=== PATIENT | female | born 1945 | race Hispanic/Latino ===

== ENCOUNTER → 2024-07-17 | Outpatient (CLI) | payer OTHER ==
--- NOTE | 2024-07-17 15:19 | HMCIMG ---
DEXA BONE DENSITY SURVEY HISTORY: Osteoporosis COMPARISON: None FINDINGS: Bone densitometry study was performed. Bone mineral density of the lumbar spine is 1.139 gram per centimeter square which corresponds to a T score of 0.8 and a Z score of 3.5. Bone mineral density of the left hip is 0.879 grams per centimeter square which corresponds to a T score of -0.6 and a Z score of 1.4. IMPRESSION: 1. Normal bone mineral density of the lumbar spine and left hip.
== END | disposition home or self-care (01) ==
LOC: RAH 13:08
PROVIDERS: ATTEND Internal Medicine
DX: M81.0 Age-related osteoporosis without current pathological fracture (principal)
CPT/HCPCS: 77080

== ENCOUNTER → 2024-11-09 | Outpatient (CLI) | payer OTHER ==
[~2024-11-09] MED LIST: IOHEXOL 350 MG/ML 100ML INFUS..BTL IV ONE; metoPROLOL tartRATE 1 MG/ML 5ML VIAL IV ONE
--- NOTE | 2024-11-09 16:13 | HMCIMG ---
CT CARDIAC ANGIO W/CONT. CCTA HISTORY: Chest pain COMPARISON: None TECHNIQUE: Multiple sequential axial images of the chest were obtained along with the CT angiogram of the chest study. Patient was given 100 cc of Omnipaque through intravenous route. FINDINGS: There is no evidence of pulmonary nodule or parenchymal disease. No pleural effusion or pericardial effusion is seen. There is no evidence of pneumothorax. There are normal size mediastinal and hilar lymph nodes. The heart is not enlarged. Degenerative changes of the thoracolumbar spine are present. IMPRESSION: 1. No evidence of pulmonary nodule or effusion is seen. Please see CT angiogram report of coronary arteries.
== END | disposition home or self-care (01) ==
LOC: RAH 08:56
PROVIDERS: ATTEND Internal Medicine Cardiovascular Disease
DX: R07.9 Chest pain, unspecified (principal); M47.815 Spondylosis without myelopathy or radiculopathy, thoracolumbar region
CPT/HCPCS: 75574; J3490 ×2; Q9967

== ENCOUNTER 2024-12-27 06:48 | Day surgery (SDC) | payer OTHER ==
--- NOTE | 2024-12-25 12:04 | EKG ---
[facility] Test Date: 2024-12-25 Test Time: 11:55:53 Pat Name: GALDINO GUTIERRES Department: [facility] Room: Gender: F [employer]: [id number] : 1945 Requested By: FESTUS HANSEN Order Number: [id number] Reading MD: Festus Isabel Measurements Intervals Tibbie Rate: 90 P: 67 CO: 163 QRS: -28 QRSD: 128 T: 72 QT: 444 QTc: 498 Interpretive Statements Sinus rhythm Multiple ventricular premature complexes Probable left atrial enlargement Left bundle branch block No previous ECG available for comparison Electronically Signed On 12-25-2024 15:04:04 CDT by Festus Isabel Please click the below link to view image of tracing.
[2024-12-25 12:07] LABS: IMMATURE GRANULOCYTE ABSOLUTE 0.02 K/uL (0-1); NUCLEATED RED BLOOD CELLS 0.0 % (0.0-0.19); PLATELET COUNT (AUTO) 155 K/uL (130-400); RED BLOOD CELL COUNT(AUTO) 4.43 MIL/uL (4.00-5.50); RED CELL DISTRIBUTION WIDTH 13.6 % (11.0-15.5); WHITE BLOOD COUNT (AUTO) 5.9 K/uL (4.8-10.8)
[2024-12-25 12:09] VITALS: BP 142/79; PULSE 94; RESP 17; TEMP 98
[2024-12-25 12:17] LABS: CREATININE 0.7 mg/dL (0.5-1.0); GLOMERULAR FILTR. RATE CALC 88.0 mL/min (>90); GLUCOSE,RANDOM 132.0 mg/dL (70-105); SODIUM SERUM 139.0 mmol/L (136-145); UREA NITROGEN, BLOOD 14.0 mg/dL (7-18)
[2024-12-25 12:20] LABS: INR 1.15 (0.85-1.15)
[2024-12-25 12:55] LABS: APPEARANCE,URINE CLEAR (CLEAR); GLUCOSE, URINE (UA) NEGATIVE (NEGATIVE); LEUKOCYTE ESTERASE ,URINE NEGATIVE Leu/uL (NEGATIVE); NITRATE,URINE NEGATIVE (NEGATIVE); OCCULT BLOOD,URINE NEGATIVE (NEGATIVE)
[2024-12-25 13:09] LABS: ADD UA MICROSCOPIC NO
--- NOTE | 2024-12-26 04:56 | HMCIMG ---
EXAM: CR Chest, 1 view CLINICAL HISTORY: Preoperative evaluation. COMPARISON: None provided. FINDINGS: The lungs show no infiltrates or other acute findings. No pleural effusion or pneumothorax. The cardiomediastinal silhouette is within normal limits. No acute osseous abnormality. Mild dextroscoliosis of the thoracolumbar spine. Old healed fracture of the right eighth rib. Partially visualized calcifications in the bilateral renal areas. IMPRESSION: No acute cardiopulmonary process is evident. Mild dextroscoliosis of the thoracolumbar spine. Old healed fracture of the right eighth rib. Partially visualized calcifications in the bilateral renal areas, further evaluation with a non-contrast CT abdomen and pelvis may be done if clinically warranted. /Aldrich
[~2024-12-27] VITALS: Ht 157.5 cm; Wt 67.9 kg
[2024-12-27] VITALS (10 sets, daily range): BP systolic 125–154; BP diastolic 60–73; PULSE 64–83; RESP 10–17; TEMP 97.4–97.9
[~2024-12-27 06:48] MED LIST changes: +AEC81 PO; +ATOR40TA69 PO; +BETA1TAB18 PO; +CETI10TA57 PO; +CHOL100040 PO; +EVOL140S2 SQ; -IOHEXOL 350 MG/ML 100ML INFUS..BTL IV ONE; +LEVO75CA6 PO; +LINA5TAB PO; +LOSA100T59 PO; +METF-445 PO; +MILK175T2 PO; +PANT40TA54 PO; +TIRZ5PEN SQ; +UBID200C18 PO; -metoPROLOL tartRATE 1 MG/ML 5ML VIAL IV ONE
[2024-12-27] MEDS: 0.9%NACL 1000ML 1,000 ML IV SCH (07:51)
[2024-12-27] MEDS ORDERED: HEParin-NS 1,000 UNIT/500 ML 1,000 ML IV ONE (08:40)
[2024-12-27] MEDS ORDERED: IOHEXOL 350 MG/ML 100ML INFUS..BTL IV ONE (08:40)
[2024-12-27] MEDS ORDERED: LIDOCAINE HCL 400MG/20ML VIAL ONE ×2 (08:40→08:46)
[2024-12-27] MEDS ORDERED: NITROGLYCERIN 50MG VIAL ONE (08:40)
[2024-12-27] MEDS ORDERED: MIDAZOLAM HCL 1 MG/ML 2ML VIAL ONE (08:59)
[2024-12-27] MEDS ORDERED: HEParin-NS 1,000 UNIT/500 ML 500 ML IV ONE (09:31)
[2024-12-27] MEDS ORDERED: GLUCAGON 1MG KIT 1 MG ML IM PRN (11:30)
[2024-12-27] MEDS ORDERED: DEXTROSE 50%-WATER 50 ML DISP.SYRIN IV PRN (11:30)
[2024-12-27] MEDS ORDERED: 0.9%NACL 1000ML 1,000 ML IV SCH (11:30)
--- NOTE | 2024-12-27 11:47 | PRN ---
PROCEDURE NOTE Indications: Chest pain Abnormal coronary CTA done on 11/15/2024 Normal left ventricle systolic function (LVEF 55-60% and grade 1 diastolic dysfunction by echocardiogram done on 12/04/2024) Moderate to severe mitral stenosis, mean gradient 9.7 mm Hg Procedures: LHC, RHC, coronary angiogram, IFR of the LAD and IVUS assessment of the RCA, femoral angiogram Introduction: After informed written consent was obtained, the patient was brought to the Catheterization Lab in the usual fasting state. Following sterile prep and drape, a time out was performed, then 1% Lidocaine was infiltrated into the right femoral groin. Using a Modified Seldinger technique, a 7Fr Sheath was inserted into the right common femoral vein. We then performed a right heart catheterization. Once that was complete administered moderate sedation, Versed 1 mg, fentanyl 50 mcg. Then using a Modified Seldinger technique a 6Fr sheath was inserted into the right common femoral artery. While under fluoroscopic guidance, diagnostic coronary catheters were advanced over a wire into the central circulation where they were aspirated, flushed and placed to pressure monitoring, once the wire was removed. Right Heart Catheterization: RA: 8/6, mean 6 mmHg RV: 27/9 PA: 25/13, mean 17mmHg PCWP: 10/15, mean 13mmHg Ave CO: 3.56 L/min Cardiac index: 2.11 Simultaneous readings: LVEDP 10mmHg, pulmonary capillary wedge pressure mean 12mmHg, Mitral valve MG 8mmHg, MVA 1.27cm2 LVEDP 10mmHg, pulmonary capillary wedge pressure mean 13mmHg, Mitral valve MG 11mmHg, MVA 1.27cm2 Coronary Angio: The left and right coronary arteries were engaged with appropriate catheters and angiography was performed under continuous pressure monitoring. Left Heart Catheterization: A pigtail catheter was inserted into the LV and the pressure was recorded, then the catheter was removed from the LV. Cardiac Findings: Right dominant system LM: Large caliber vessel with 20% stenosis in the ostial LM. The vessel bifurcates into the LAD and LCX. LAD: Medium caliber vessel with 50% stenosis in the ostial LAD and diffuse 30- 40% stenosis in the mid LAD. YOLANDA three blood flow distally. Diagonal 1: Small caliber vessel with 30% stenosis. Diagonal 2: Small caliber vessel with mild luminal irregularities LCx: Medium caliber vessel with diffuse 40% stenosis in the mid LCX Ramus: Small caliber vessel diffuse luminal irregularities OM1: Medium caliber vessel with mild luminal irregularities OM2: Medium caliber vessel with mild luminal irregularities RCA: Medium caliber vessel with diffuse 50-60% stenosis in the proximal and mid RCA. RPDA: Small caliber vessel with 30% stenosis in the proximal RPDA RPLV: Small caliber vessel with mild luminal irregularities LVEDP: 10mmHg Medications given: Versed 2mg, Fentanyl 75mcg, heparin 75 units/kg x1 dose, nitroglycerin 200mcg x 1 dose Coronary Intervention: Guide catheter: JL4 diagnostic and JR4 Guide wire: iFR wire and 0.014 run-through After reviewing the above-mentioned findings the decision was made to further evaluate the LAD and RCA. We administered heparin 75 units/kg x1 dose. We then advanced the IFR wire through the JL4 diagnostic catheter and performed IFR of the proximal and mid LAD. IFR readings: 0.90 and 0.89. We then removed the IFR wire and JL4 diagnostic catheter. We then advanced a JR4 guide catheter and 0. 014 run-through guidewire into the ostium of the RCA. We then advanced the guidewire into the distal RPDA and performed IVUS of the proximal, and mid RCA. IVUS revealed nonobstructive CAD, 50-60% stenosis in the proximal and mid RCA. The 0.014 run-through guidewire, IVUS catheter and JR 4 catheter were then removed. The patient tolerated the procedure well and without issue. Complications: None Conscious Sedation Monitoring: Under my direct order and supervision, medication for moderate conscious sed ation was administered by the nursing staff and the patients level of consciousness and physiological status was monitored by an independent trained nurse. Closure of Access Site: After the case completed the sheath was pulled and a 6Fr Angioseal was deployed in the right common femoral artery and a Vascade MVP was deployed in the right common femoral vein without complication. Conclusion: 1. Nonobstructive CAD, IFR of the LAD 0.90 and 0.89, IVUS of the RCA identified 50-60% stenosis in the proximal and mid RCA 2. Moderate mitral stenosis, mean gradient 8-11mmHg, MVA 1.27cm2 3. Normal cardiac output, Ave 3.56 L/min 4. Normal LVEDP: 10mmHg 5. Normal right-sided filling pressures, pulmonary capillary wedge pressure mean 13mmHg, PA 25/13 mean 17mmHg Recommendation: 1. Continue goal-directed medical therapy 2. 4 hours of bedrest 3. Groin precautions 4. Start NS at 100 mL/hour x3 hours. 5. Okay to DC once bed restless complete in the right groin is soft, and free of bruising, bleeding, and or hematoma formation. 6. No driving for the next 48 hours. 7. No heavy lifting or strenuous exercise for the next two weeks. ELDON HANSEN MD Dec 27, 2024 11:47
--- NOTE | 2024-12-27 14:27 | NUR ---
Femoral dressing clean, dry and intact. No bleeding, bruising or issue. No evidence of hematoma. Educated Patient of importance of not bending right leg and POC until discharge. Voiced understanding in full. Dr. Ye stated he will come and speak tothe Patient in between his cases. Family updated. Patient resting quietly without complaint. Tolerated most of Lunch and fluids. cane flume watcher intact. Call light in reach. at bedside appearing supportive. Reported off in full to oncoming Nurse, Shani ULLOA.
== END 2024-12-27 15:34 | disposition home or self-care (01) ==
LOC: DAH 06:48
PROVIDERS: ATTEND Internal Medicine Cardiovascular Disease
DX: R07.9 Chest pain, unspecified (principal); I25.118 Atherosclerotic heart disease of native coronary artery with other forms of angina pectoris; I25.84 Coronary atherosclerosis due to calcified coronary lesion; I05.0 Rheumatic mitral stenosis; I10 Essential (primary) hypertension; E78.5 Hyperlipidemia, unspecified; I49.3 Ventricular premature depolarization; E11.9 Type 2 diabetes mellitus without complications; E03.9 Hypothyroidism, unspecified; M81.0 Age-related osteoporosis without current pathological fracture; I44.7 Left bundle-branch block, unspecified; Z79.01 Long term (current) use of anticoagulants; Z86.73 Personal history of transient ischemic attack (TIA), and cerebral infarction without residual deficits; Z90.49 Acquired absence of other specified parts of digestive tract; Z79.82 Long term (current) use of aspirin; Z79.899 Other long term (current) drug therapy
CPT/HCPCS: 80048; 83880; 85025; 85610; 85730; 81003; 36415; 71045; 93005; 93460; 92978; 93571; 85347; 82948; 99156; 99157 ×4; C1887; C1894 ×3; C1760 ×2; C1769 ×3; C1753; J3010; J3490 ×3; J1644 ×3; J2250; Q9967; A4215; A4335; A4222; A4221; A4663; A4216; A4606; Q9965 ×2; A4223 ×3; A4554